=== PATIENT | male | born 1990 | race Caucasian/White ===

== ENCOUNTER 2018-06-06 03:44 | Emergency (ER) | payer OTHER ==
[~2018-06-06] VITALS: Ht 182.9 cm; Wt 101.6 kg
[2018-06-06] MEDS ORDERED: ONDANSETRON 2MG/ML, 2ML ONE (04:20)
[2018-06-06] MEDS ORDERED: MORPHINE SULFATE 4 MG/ML, 1ML ONE ×2 (04:20→05:40)
[2018-06-06] MEDS ORDERED: KETOROLAC 30 MG/1 ML ONE (04:20)
[2018-06-06] MEDS: MORPHINE SULFATE 4 MG/ML, 1ML IVPush PRN ×2 (04:27→05:43)
[2018-06-06] MEDS ORDERED: ONDANSETRON 2MG/ML, 2ML IVPush ONE (04:30)
[2018-06-06] MEDS ORDERED: KETOROLAC 30 MG/1 ML IVPush ONE (04:30)
[2018-06-06] MEDS ORDERED: SODIUM CHLORIDE FLUSH 10ML SYR IVF ONE (04:30)
--- NOTE | 2018-06-06 04:34 | NUR ---
PT MEDICATED PER JUN. PT TO CT NOW
[2018-06-06 04:39] LABS: MICROSCOPIC INDICATED
[2018-06-06 04:40] LABS: CULTURE INDICATED? NO
--- NOTE | 2018-06-06 04:41 | NUR ---
PT HAS RETURNED FROM CT AT THIS TIME. PT STATES HIS PAIN IS NOW TOLERABLE. POC DISCUSSED. PT DENIES FURTHER NEEDS AT THIS TIME.
[2018-06-06 04:57] LABS: BASOPHILS # (AUTO) 0.06 x10^3/uL (0-0.1); BASOPHILS % (AUTO) 1 % (0-1); EOSINOPHILS % (AUTO) 6 % (1-7); LYMPHOCYTES # (AUTO) 2.98 x10^3/uL (1-3.4); LYMPHOCYTES % (AUTO) 32 % (22-44); MD NO; MEAN CORPUSCULAR HEMOGLOBIN 29.9 pg (27.5-34.5); MEAN PLATELET VOLUME 8.9 fL (7.4-10.4); MONOCYTES % (AUTO) 6 % (2-9); NEUTROPHILS # (AUTO) 5.21 x10^3/uL (1.8-6.8); NEUTROPHILS % (AUTO) 55 % (42-75); PLATELET COUNT 304 x10^3/uL (130-400); RED BLOOD COUNT 5.43 x10^6/uL (4.38-5.82); RED CELL DISTRIBUTION WIDTH 12.6 % (9.4-14.8)
[2018-06-06 05:10] LABS: CHLORIDE 107 mmol/L (98-107)
[2018-06-06 05:14] LABS: ALBUMIN 4.1 g/dL (3.4-5.0); ANION GAP 6 mmol/L (5-15); CALCIUM 9.3 mg/dL (8.5-10.1); CREATININE 1.18 mg/dL (0.7-1.3)
--- NOTE | 2018-06-06 05:46 | NUR ---
UPON DC PT REQUESTING PAIN MEDS FOR INCREASING PAIN. PT WAS EXPLAINED 15 MIN RULE WITH MEDS. PT AGREES TO THIS. PT MEDICATED PER JUN. POC DISCUSSED. PT DENIES FURTHER NEEDS AT THIS TIME.
[2018-06-06 05:47] VITALS: BP 131/74
== END 2018-06-06 05:56 | disposition home or self-care (01) ==
LOC: ED 04:10
DX: N13.2 Hydronephrosis with renal and ureteral calculous obstruction (principal); R73.9 Hyperglycemia, unspecified
CPT/HCPCS: 36415; 74176; 80048; 81001; 82040; 83690; 85025; 96374; 96375; 96376; 99284; J1885; J2405